=== PATIENT | male | born 1990 | race Caucasian/White ===

== ENCOUNTER 2017-03-27 09:23 | Emergency (ER) | payer OTHER ==
[2017-03-27] MEDS ORDERED: SODIUM CHLORIDE 0.9% 1,000 ML IV ONE (09:43)
--- NOTE | 2017-03-27 09:47 | ED Physician Documentation ---
History of Present Illness - Stated complaint Stated Complaint: DIZZY/SYNCOPE - Chief complaint Chief Complaint: General - Additonal information Additional information: hx from pt [place] male recent URI today sitting at work ([employer]) and devloped profound dizziness / vertigo with associated generalized weakness shaking hands and sweat palms lasted about 20 min better now no URENA CP AP no palpitations no recent med changes Review of Systems Constitutional: reports: Sweats. denies: Fever, Chills Ears: denies: Ear pain Throat: denies: Sore throat Cardiac: denies: Chest pain / pressure Respiratory: denies: Dyspnea GI: denies: Abdominal Pain, Nausea, Vomiting Neurologic: reports: Other (vertigo) Endocrine: denies: Easy bruising / bleeding Immunocompromised: denies: Immunocompromised PD PAST MEDICAL HISTORY - Past Medical History Neuro: Headache/migraine Musculoskeletal: Chronic back pain - Past Surgical History Past Surgical History: No - Present Medications Home Medications: Ambulatory Orders Medication Instructions Recorded Confirmed Meclizine [Antivert] 25 mg PO Q6H PRN #20 tablet 03/27/17 - Allergies Allergies/Adverse Reactions: Allergies Allergy/AdvReac Type Severity Reaction Status Date / Time pertussis vaccine,adsorbed Allergy Unknown Verified 06/26/14 17:10 [Pertussis Vaccine,Adsorbed] - Social History Does the pt smoke?: Yes Smoking Status: Current every day smoker Does the pt drink ETOH?: Yes Does the pt have substance abuse?: No - Immunizations Immunizations are current?: Yes - POLST Patient has POLST: No PD ED PE NORMAL - Vitals Vital signs reviewed: Yes - General General: Alert and oriented X 3 - HEENT HEENT: Atraumatic, Ears normal - Neck Neck: Supple, no meningeal sign - Cardiac Cardiac: RRR, No murmur - Respiratory Respiratory: No respiratory distress, Clear bilaterally - Neuro Neuro: Alert and oriented X 3, adoption agent 2-12 intact, No motor deficit, Normal speech - Psych Psych: Normal mood Results - Vitals Vitals: Vital Signs - 24 hr 03/27/17 09:28 Temperature 36.1 C L Heart Rate 64 Respiratory 18 Rate Blood Pressure 140/88 H O2 Saturation 98 Oxygen O2 Source Room air - EKG (time done) 0940 Rate: Rate (enter#) Rhythm: NSR (59) [place]: Normal Intervals: Normal CT Ischemia: Normal ST segments Other comments: Other comments (no delta wave) - Labs Labs: Laboratory Tests 03/27/17 03/27/17 09:50 09:50 WBC 4.3 L RBC 4.88 Hgb 15.5 Hct 45.6 MCV 93.5 MCH 31.8 H MCHC 34.0 RDW 13.0 Plt Count 187 MPV 7.9 Neut # 2.5 Lymph # 1.1 L [place] # 0.4 Eos # 0.2 Baso # 0.1 Absolute Nucleated RBC 0.00 Nucleated RBCs 0.0 Sodium 135 Potassium 4.0 Chloride 100 L Carbon Dioxide 27 Anion Gap 8.0 BUN 16 Creatinine 1.0 Estimated GFR (MDRD) 90 Glucose 110 H Calcium 9.3 PD MEDICAL DECISION MAKING - ED course ED course: sx now resolved EKG and tele NSR nl labs no focal neuro feficits - do not think CT will be beneficial likely int BPV after recent URI will dc with rx meclzine to take if sx return Departure - Departure Disposition: Home, Self Care Clinical Impression: Vertigo Condition: Good Instructions: ED Vertigo Unspecified Follow-Up: [facility] [Provider Group] (for a recheck tomorrow) Prescriptions: Meclizine [Antivert] 25 mg PO Q6H PRN #20 tablet PRN Reason: Dizziness Comments: You labs and heart tracings are fine. The symptoms you describe sound like inner ear vertigo which can often occur after a upper respiratory tract infection I have prescribed meclizine for you to try if the symptoms return If the symptoms get worse or new symptoms develop, please come back - we are always open Also please have your PMD recheck your blood pressure - it was elevated today Forms: Activity restrictions
[2017-03-27 10:01] LABS: BASOPHILS # (AUTO) 0.1 10^3/uL (0.0-0.1); BASOPHILS % (AUTO) 1.4 %; EOSINOPHILS # (AUTO) 0.2 10^3/uL (0.0-0.7); EOSINOPHILS % (AUTO) 3.9 %; HCT - HEMATOCRIT 45.6 % (42.0-52.0); HGB - HEMOGLOBIN 15.5 g/dL (14.0-18.0); LYMPHOCYTES # (AUTO) 1.1 10^3/uL (1.5-3.5); LYMPHOCYTES % (AUTO) 26.6 %; MEAN CORPUSCULAR HEMOGLOBIN 31.8 pg (27.0-31.0); MEAN CORPUSCULAR VOLUME 93.5 fL (80.0-94.0); MEAN PLATELET VOLUME 7.9 fL (7.4-11.4); MONOCYTES # (AUTO) 0.4 10^3/uL (0.0-1.0); MONOCYTES % (AUTO) 9.6 %; NEUTROPHILS # (AUTO) 2.5 10^3/uL (1.5-6.6); NEUTROPHILS % (AUTO) 58.5 %; RED BLOOD COUNT 4.88 10^6/uL (4.70-6.10); UNCORRECTED WHITE BLOOD COUNT 4.3 x10^3/uL; WHITE BLOOD COUNT 4.3 x10^3/uL (4.8-10.8)
[2017-03-27 10:07] LABS: CALCIUM 9.3 mg/dL (8.5-10.3)
[2017-03-27 10:22] VITALS: BP 119/84
== END 2017-03-27 10:30 | disposition home or self-care (01) ==
LOC: ED 09:23
DX: R42 Dizziness and giddiness (principal); R03.0 Elevated blood-pressure reading, without diagnosis of hypertension; F17.200 Nicotine dependence, unspecified, uncomplicated
CPT/HCPCS: 36415; 80048; 85025; 93005; 99283

== ENCOUNTER 2017-11-08 13:56 | Emergency (ER) | payer OTHER ==
[2017-11-08] MEDS ORDERED: IBUPROFEN 400 MG TABLET PO STA (14:50)
--- NOTE | 2017-11-08 15:31 | XRAY Report ---
EXAM: RIGHT KNEE RADIOGRAPHY EXAM DATE: 11/08/2017 02:54 PM. CLINICAL HISTORY: Snowboard accident. COMPARISON: None. TECHNIQUE: 4 views. FINDINGS: Bones: Normal. No fractures or bone lesions. Joints: Normal. No effusion. No subluxations. Soft Tissues: Normal. No soft tissue swelling. IMPRESSION: Normal knee radiography. [facility] Referring Provider Line: [phone] SITE ID: [id number]
--- NOTE | 2017-11-08 15:32 | XRAY Report ---
EXAM: RIGHT TIBIA/FIBULA RADIOGRAPHY EXAM DATE: 11/08/2017 02:54 PM. CLINICAL HISTORY: Snowboard accident. COMPARISON: None. TECHNIQUE: 2 views. FINDINGS: Bones: Normal. No fracture or bone lesion. Joints: The visualized knee and ankle joints are normal. No effusions. Soft Tissues: Normal. No soft tissue swelling. IMPRESSION: Normal tibia/fibula radiography. [facility] Referring Provider Line: [phone] SITE ID: [id number]
--- NOTE | 2017-11-08 15:32 | XRAY Preliminary Report ---
Exam: XR TIB/FIB RT IMPRESSION: Normal tibia/fibula radiography. [facility] SITE ID: [id number]
--- NOTE | 2017-11-08 15:34 | XRAY Report ---
EXAM: RIGHT ANKLE RADIOGRAPHY EXAM DATE: 11/08/2017 02:54 PM. CLINICAL HISTORY: Snowboard accident. COMPARISON: None. TECHNIQUE: 3 views. FINDINGS: Bones: Normal. No fractures or bone lesions. Joints: Normal. No effusion. No subluxations. The ankle mortise is normally aligned. Soft Tissues: Normal. No soft tissue swelling. IMPRESSION: Normal ankle radiography. [facility] Referring Provider Line: [phone] SITE ID: [id number]
--- NOTE | 2017-11-08 15:35 | XRAY Report ---
EXAM: RIGHT FOOT RADIOGRAPHY EXAM DATE: 11/08/2017 02:54 PM. CLINICAL HISTORY: Snowboard accident. COMPARISON: None. TECHNIQUE: 3 views. FINDINGS: Bones: Normal. No fractures or bone lesions. Joints: Normal. No subluxations. Soft Tissues: Normal. No soft tissue swelling. IMPRESSION: Normal foot radiography. [facility] Referring Provider Line: [phone] SITE ID: [id number]
--- NOTE | 2017-11-08 15:35 | XRAY Preliminary Report ---
Exam: XR FOOT 3 VIEW RT IMPRESSION: Normal foot radiography. [facility] SITE ID: [id number]
--- NOTE | 2017-11-08 15:52 | ED Physician Documentation ---
History of Present Illness - Stated complaint Stated Complaint: RT ANKLE PX - Chief complaint Chief Complaint: Ext Problem - Additonal information Additional information: hx from pt 26 y/o healthy male while snowboarding yesterday came into a jump and board jammed into the base of the jump and caused him to abruptly crash taking the streess on his back R leg no head neck chest abd injury pain LLE from knee to foot Review of Systems Musculoskeletal: reports: Pain with weight bearing PD PAST MEDICAL HISTORY - Past Medical History Past Medical History: Yes Neuro: Headache/migraine Musculoskeletal: Chronic back pain - Past Surgical History Past Surgical History: No - Present Medications Home Medications: Ambulatory Orders Medication Instructions Recorded Confirmed No Known Home Medications [No 11/08/17 11/08/17 Known Home Medications] - Allergies Allergies/Adverse Reactions: Allergies Allergy/AdvReac Type Severity Reaction Status Date / Time pertussis vaccine,adsorbed Allergy Unknown Verified 11/08/17 14:41 [Pertussis Vaccine,Adsorbed] - Social History Does the pt smoke?: Yes Smoking Status: Current every day smoker Does the pt drink ETOH?: Yes Does the pt have substance abuse?: No - Immunizations Immunizations are current?: Yes - POLST Patient has POLST: No PD ED PE NORMAL - Vitals Vital signs reviewed: Yes - Extremities Extremities: Other (RLE knee: TTP medial jt line, small effusion, no MCL LCL ACL laxity, mid TTP long entire tibia, TTP lateral > medial mall and small swelling, TTP to mid foot s deformity, MSV intact) - Neuro Neuro: Alert and oriented X 3, No motor deficit, No sensory deficit Results - Vitals Vitals: Vital Signs - 24 hr 11/08/17 13:59 Temperature 36.7 C Heart Rate 80 Respiratory 18 Rate Blood Pressure 130/63 O2 Saturation 96 Oxygen O2 Source Room air - Rads (name of study) knee, tib fib, ankle, foot Radiology: See rad report (neg) Departure - Departure Disposition: 01 Home, Self Care Clinical Impression: Right knee sprain Qualifiers: Encounter type: initial encounter Involved ligament of knee: unspecified ligament Qualified Code(s): S83.91XA - Sprain of unspecified site of right knee , initial encounter Ankle sprain Qualifiers: Encounter type: initial encounter Involved ligament of ankle: unspecified ligament Laterality: right Qualified Code(s): S93.401A - Sprain of unspecified ligament of right ankle, initial encounter Foot sprain Qualifiers: Encounter type: initial encounter Laterality: right Qualified Code(s): S93.601A - Unspecified sprain of right foot, initial encounter Condition: Good Instructions: ED Sprain Foot, ED Sprain Knee, ED Sprain Ankle Follow-Up: [facility] [Provider Group] Comments: Thankfully all the xrays are fine - no broken bones or dislocated joints But you have likely sprained the leg / injured some ligaments Recommend you use an ROSS wrap ice and elevation to decrease the swelling, use crutches as needed to minimize weight bearing stress, and take tylenol and motrin as needed for pain Follow up with [facility] if not better in 2 weeks Forms: Activity restrictions
[2017-11-08 16:31] VITALS: BP 128/87
== END 2017-11-08 16:22 | disposition home or self-care (01) ==
LOC: ED 13:56
DX: S83.91XA Sprain of unspecified site of right knee, initial encounter (principal); S93.401A Sprain of unspecified ligament of right ankle, initial encounter; S93.601A Unspecified sprain of right foot, initial encounter; W23.0XXA Caught, crushed, jammed, or pinched between moving objects, initial encounter; Y93.23 Activity, snow (alpine) (downhill) skiing, snowboarding, sledding, tobogganing and snow tubing; F17.200 Nicotine dependence, unspecified, uncomplicated
CPT/HCPCS: 73564; 73590; 73610; 73630; 99282; 99283; A9270

== ENCOUNTER 2018-05-14 03:39 | Emergency (ER) | payer OTHER ==
[2018-05-14] MEDS ORDERED: KETOROLAC 60 MG/2 ML VIAL IM STA (03:58)
[2018-05-14] MEDS ORDERED: DEXAMETHASONE 10 MG/ML VIAL PO STA (03:58)
[2018-05-14] MEDS ORDERED: CYCLOBENZAPRINE 10 MG TABLET PO STA (03:58)
[2018-05-14] MEDS ORDERED: HYDROcod/ACETAM 5/325 MG TABLET PO STA (03:58)
--- NOTE | 2018-05-14 04:56 | ED Physician Documentation ---
PD HPI BACK PAIN - Stated complaint Stated Complaint: BACK PAIN - Chief complaint Chief Complaint: Back Pain - History obtained from History obtained from: Patient - History of Present Illness Timing - onset: Today Timing - details: Abrupt onset, Still present Location: Mid, Left Quality: Spasm, Similar to prior episodes Associated symptoms: No: Fever, Weakness, Numbness Worsened by: Movement, Palpation Similar symptoms before: No diagnosis Recently seen: Not recently seen - Additional information Additional information: Patient is a 27 year old male with no significant past medical history who is presenting to the emergency department for back spasm. patient states that he was at work and he stood up and his back locked up. patient reports similar instances in the past. patient denies any trauma or neurological complaints. Review of Systems Ten Systems: 10 systems reviewed and negative Musculoskeletal: reports: Back pain PD PAST MEDICAL HISTORY - Past Medical History Past Medical History: Yes Musculoskeletal: Chronic back pain - Past Surgical History Past Surgical History: No - Present Medications Home Medications: Ambulatory Orders Medication Instructions Recorded Confirmed Cyclobenzaprine [Flexeril] 10 mg PO DAILY PRN #10 tablet 05/14/18 - Allergies Allergies/Adverse Reactions: Allergies Allergy/AdvReac Type Severity Reaction Status Date / Time pertussis vaccine,adsorbed Allergy Unknown Verified 05/14/18 03:48 [Pertussis Vaccine,Adsorbed] - Social History Does the pt smoke?: Yes Smoking Status: Current every day smoker Does the pt drink ETOH?: Yes Does the pt have substance abuse?: No - Immunizations Immunizations are current?: Yes - POLST Patient has POLST: No PD ED PE NORMAL - Vitals Vital signs reviewed: Yes - General General: Alert and oriented X 3, Well developed/nourished - HEENT HEENT: Atraumatic - Cardiac Cardiac: RRR - Respiratory Respiratory: No respiratory distress - Abdomen Abdomen: Soft - Derm Derm: Normal color, Warm and dry - Extremities Extremities: No deformity - Neuro Neuro: Alert and oriented X 3, Normal speech Eye Opening: Spontaneous Motor: Obeys Commands Verbal: Oriented GCS Score: 15 PD ED PE EXPANDED - General General: Alert, In Pain - Back Back: Normal ROM, Soft tissue tenderness (tenderness and hypertonicity to left paraspinal muscles). No: Vertebral tenderness Results - Vitals Vitals: Vital Signs - 24 hr 05/14/18 05/14/18 03:40 05:10 Temperature 36.8 C 36.9 C Heart Rate 81 74 Respiratory 17 16 Rate Blood Pressure 151/96 H 125/95 H O2 Saturation 100 97 Oxygen O2 Source Room air PD MEDICAL DECISION MAKING - ED course Complexity details: reviewed old records, reviewed results, re-evaluated patient, considered differential, d/w patient ED course: Patient was seen and examined at bedside. patient's findings were consistent with muscle spams without any neurological deficit. patient was treated with toradol, percocet, decadron and flexeril. Patient responded well to the therapy. Patient required no further work up and was stable for discharge with outpatient follow up. - Sepsis Event Vital Signs: Vital Signs - 24 hr 05/14/18 05/14/18 03:40 05:10 Temperature 36.8 C 36.9 C Heart Rate 81 74 Respiratory 17 16 Rate Blood Pressure 151/96 H 125/95 H O2 Saturation 100 97 Oxygen O2 Source Room air Departure - Departure Disposition: 01 Home, Self Care Clinical Impression: Back spasm Condition: Good Instructions: ED Spasm Back No Trauma Follow-Up: primary,care provider [Other] - As Needed Prescriptions: Cyclobenzaprine [Flexeril] 10 mg PO DAILY PRN #10 tablet PRN Reason: Spasms Comments: Your symptoms today are likely being caused by muscle spams. It is important that you stay well hydrated and try to decrease your diuretic intake. You can take the flexeril as needed for spasm and motrin and tylenol as needed for pain. If you take 600mg of ibuprofen and 1000mg of tylenol at the same time it has the same therapeutic affect as narcotic pain medication. You should follow up with your doctor for routine care. You can also consider massage or chiropractor care. Forms: Activity restrictions Discharge Date/Time: 05/14/18 05:12
[2018-05-14 05:12] VITALS: BP 125/95
== END 2018-05-14 05:12 | disposition home or self-care (01) ==
LOC: ED 03:39
DX: M62.830 Muscle spasm of back (principal); F17.200 Nicotine dependence, unspecified, uncomplicated
CPT/HCPCS: 96372; 99283; A9270

== ENCOUNTER 2018-11-04 10:15 | Emergency (ER) | payer OTHER ==
[2018-11-04 10:27] VITALS: BP 135/86
--- NOTE | 2018-11-04 11:57 | XRAY Report ---
Reason: cough Procedure Date: 11/04/2018 Accession Number: [id number] / [id number] Procedure: XR - Chest 2 View X-Ray CPT Code: 01476 FULL RESULT: EXAM: CHEST RADIOGRAPHY EXAM DATE: 11/04/2018 11:50 AM. CLINICAL HISTORY: Persistent cough for 10 days. COMPARISON: None. TECHNIQUE: 2 views. FINDINGS: Lungs/Pleura: No focal opacities evident. No pleural effusion. No pneumothorax. Normal volumes. Mediastinum: Heart and mediastinal contours are unremarkable. Other: None. IMPRESSION: No radiographic evidence of acute cardiopulmonary disease. [facility]
[2018-11-04] MEDS ORDERED: DEXAMETHASONE 10 MG/ML VIAL PO STA (12:35)
[2018-11-04] MEDS ORDERED: DOXYCYCLINE 100 MG TABLET PO STA (12:35)
--- NOTE | 2018-11-04 12:36 | ED Physician Documentation ---
PD HPI URI - Stated complaint Stated Complaint: COUGH/SOA/CONGESTED - Chief complaint Chief Complaint: Resp - Additional information Additional information: 27-year-old male presents the emergency department with 10 days of facial pain, nasal congestion and sinus pressure with postnasal drip and cough. The patient reports increasing cough with productive sputum. The patient denies any wheezing or shortness of breath. The patient reports low-grade fever at home. The patient reports body aches but they have resolved. No other associated symptoms. No triggering factors. Review of Systems Constitutional: reports: Fever, Myalgias, Fatigue Eyes: denies: Discharge Ears: reports: Ear pain Nose: reports: Rhinorrhea / runny nose, Congestion, Sinus pressure / pain Throat: reports: Oral lesions / sores Cardiac: denies: Palpitations Respiratory: reports: Cough GI: denies: Abdominal Pain : denies: Dysuria Skin: denies: Rash Musculoskeletal: denies: Neck pain Neurologic: denies: Headache PD PAST MEDICAL HISTORY - Past Medical History Cardiovascular: None Respiratory: None Neuro: None Musculoskeletal: Chronic back pain - Past Surgical History Past Surgical History: No - Present Medications Home Medications: Ambulatory Orders Medication Instructions Recorded Confirmed Doxycycline Hyclate 100 mg PO BID #20 capsule 11/04/18 - Allergies Allergies/Adverse Reactions: Allergies Allergy/AdvReac Type Severity Reaction Status Date / Time pertussis vaccine,adsorbed Allergy Unknown Verified 11/04/18 10:27 [Pertussis Vaccine,Adsorbed] - Social History Does the pt smoke?: Yes Smoking Status: Current every day smoker Does the pt drink ETOH?: Yes Does the pt have substance abuse?: No - Immunizations Immunizations are current?: Yes - POLST Patient has POLST: No PD ED PE NORMAL - General General: Alert and oriented X 3, No acute distress - HEENT HEENT: Atraumatic, PERRL, EOMI, Ears normal, Moist mucous membranes, Pharynx benign - Cardiac Cardiac: RRR, Strong equal pulses - Respiratory Respiratory: No respiratory distress, Clear bilaterally - Derm Derm: Normal color - Extremities Extremities: No deformity - Neuro Neuro: Alert and oriented X 3, Normal speech - Psych Psych: Normal affect Results - Vitals Vitals: Vital Signs - 24 hr 11/04/18 10:24 Temperature 36.2 C L Heart Rate 58 L Respiratory 14 Rate Blood Pressure 135/86 H O2 Saturation 99 Oxygen O2 Source Room air - Labs Labs: Laboratory Tests 11/04/18 10:29 Influenza A (Rapid) Negative Influenza B (Rapid) Negative - Rads (name of study) CXR Radiology: Final report received, See rad report PD MEDICAL DECISION MAKING - ED course ED course: The patient's symptoms have been ongoing for 10 days, given the prolonged duration he will be treated for a bacterial sinusitis. The findings and plan were discussed the patient understands and agrees to plan. I discussed warning signs and recommended returning for any worsening or any concerns Departure - Departure Disposition: 01 Home, Self Care Clinical Impression: Sinusitis Qualifiers: Sinusitis location: other Chronicity: acute Recurrence: non-recurrent Qualified Code(s): J01.80 - Other acute sinusitis Condition: Good Instructions: ED Sinusitis Abx Tx Follow-Up: [facility] [Provider Group] - Within 1 week Prescriptions: Doxycycline Hyclate 100 mg PO BID #20 capsule Comments: Please return to the emergency department for any worsening or any concerns Discharge Date/Time: 11/04/18 12:49
== END 2018-11-04 12:49 | disposition home or self-care (01) ==
LOC: ED 10:15
DX: J01.80 Other acute sinusitis (principal); F17.200 Nicotine dependence, unspecified, uncomplicated
CPT/HCPCS: 71046; 87275; 87276; 99283; A9270